=== PATIENT | female | born 1960 | race Caucasian/White ===

== ENCOUNTER 2019-11-13 13:10 | Emergency (ER) | payer MEDICAID ==
[~2019-11-13] VITALS: Ht 154.9 cm; Wt 140.9 kg
[~2019-11-13 13:10] MED LIST: ADDERALL5 MG PO; ALAVERT10 M1 PO; AMLOPIDINE; CATAPRES 0.1MG0.1 MG PO; CEPHALEXIN500 M1 PO; CLARITIN 1010 MG/TAB PO; DEPO-PROVER150 MG/M1 IM; FERROUS SU325 MG/TAB PO; FORTAMET500 MG PO; GLUCOPHAGE1000 MG PO; HCTZ 25MG25 MG PO; HYDROXYZINE50 MG PO; LASIX 20MG TABL20 MG PO; LEVAQUIN 5500 MG/TA1 PO; LEXAPRO 5MG5 MG PO; LEXAPRO20 MG PO; LIDODERM PATCH TP; LISINOPRIL20 MG PO; LORTAB 5/500 501 TAB PO; LORTAB 7.5/5001 TAB; METOPROLOL SUCC50 M1 PO; MIRAPEX 0.0.125 MG/T PO; MOBIC15 MG PO; MORPHINE PO; MOTRIN 800800 MG/TAB PO; NALTREXONE PO; NASONEX SPRAY17 GM; NORVASC 10MG10 MG PO; NORVASC 5MG5 MG/TAB PO; NYSTATIN POWDER15 GM TOP; PERCOCET 325 MG1 TA2 PO; PERCOCET 325 MG1 TAB PO; PERCOCET 500 MG1 TAB PO; PHENTERMINE; PREVACID 30MG30 M1 PO; PRINIVIL2.5 MG PO; PRINIVIL40 MG PO; RESTORIL 1515 MG/CAP PO; RESTORIL30 MG PO; SEPTRA DS 8001 TAB PO; TOPROL XL50 MG PO; VENTOLIN0.09 MG IH; VITAMIN D 1001000 IU PO; VYVANSE50 MG PO; XANAX .25M0.25 MG/TA PO; ZOCOR 20MG20 MG PO; ZOCOR5 MG PO
[2019-11-13 13:15] VITALS: TEMP 98.5
[2019-11-13] MEDS ORDERED: SINEQUAN 1010 MG/CAP PO (15:45)
[2019-11-13] MEDS ORDERED: CADUET 10 MG-101 TAB PO (15:48)
[2019-11-13] MEDS ORDERED: ADDERALL XR20 MG PO (15:50)
[2019-11-13] MEDS ORDERED: HYSINGLA60 PO (15:53)
[2019-11-13 16:00] VITALS: BP 178/88; PULSE 93
== END 2019-11-13 16:00 | disposition home or self-care (01) ==
LOC: COL.ER 13:10
DX: B37.2 Candidiasis of skin and nail (principal); E11.9 Type 2 diabetes mellitus without complications; E66.01 Morbid (severe) obesity due to excess calories; I10 Essential (primary) hypertension; E78.5 Hyperlipidemia, unspecified; Z90.89 Acquired absence of other organs; Z87.891 Personal history of nicotine dependence; Z79.84 Long term (current) use of oral hypoglycemic drugs

== ENCOUNTER → 2020-04-05 | Outpatient (CLI) | payer MEDICAID ==
[~2020-04-05] MED LIST changes: +ADDERALL XR20 MG PO; +CADUET 10 MG-101 TAB PO; +HYSINGLA60 PO; +SINEQUAN 1010 MG/CAP PO
== END ==
LOC: COL.RAD 14:46
DX: M47.816 Spondylosis without myelopathy or radiculopathy, lumbar region (principal)

== ENCOUNTER 2020-10-25 15:20 | Emergency (ER) | payer MEDICAID ==
[~2020-10-25] VITALS: Ht 154.9 cm; Wt 157.3 kg
[2020-10-25 16:17] LABS: BASO % 0.3 % (0.0-2.0); EOS # 0.1 (0.0-0.7); EOS % 1.3 % (0-4.0); GRAN # 6.5 (1.4-6.5); HEMATOCRIT 39.8 % (37.0-47.0); HEMOGLOBIN 12.3 g/dl (12.5-16.0); LYMPH # 1.9 (1.2-3.4); LYMPH % 20.6 % (20.0-51.0); MEAN CELL VOLUME 88 fl (80.0-100.0); MEAN CORPUSCULAR HEMOGLOBIN 27 pg (27.0-31.0); MEAN CORPUSCULAR HGB CONC 31 g/dl (33.0-37.0); MEAN PLATELET VOLUME 10.3 fl (7.4-10.4); MONO # 0.7 (0.1-0.6); PLATELET COUNT 226 K/mm3 (130-400); RED BLOOD COUNT 4.51 M/mm3 (4.10-5.30); REDCELL DISTRIBUTION WIDTH-CV 16.1 % (11.5-14.5)
[2020-10-25 16:25] LABS: ALANINE AMINOTRANSFERASE 30 U/L (4-34); ALKALINE PHOSPHATASE 114 U/L (50-136); ANION GAP 6 mmol/L (7-16); AST,SGOT 32 U/L (15-37); BILIRUBIN,TOTAL 0.2 mg/dL (0.0-1.0); BLOOD UREA NITROGEN 12 mg/dL (7-17); CARBON DIOXIDE 27 mmol/L (22-30); CHLORIDE 105 mmol/L (98-107); CREATININE, serum 0.45 (0.52-1.25); GLUCOSE 121 mg/dL (74-106); POTASSIUM 4.2 mmol/L (3.4-5.0); SODIUM 137 mmol/L (137-145); TOTAL PROTEIN 7.3 gm/dL (6.4-8.2)
[2020-10-25 16:36] LABS: TROPONIN-I < 0.012 ng/mL (0.000-0.035)
[2020-10-25 18:10] VITALS: BP 160/80; PULSE 65
== END 2020-10-25 18:15 | disposition home or self-care (01) ==
LOC: COL.ER 15:20
PROVIDERS: Physician Assistant
DX: I10 Essential (primary) hypertension (principal); E66.01 Morbid (severe) obesity due to excess calories; Z68.44 Body mass index [BMI] 60.0-69.9, adult; Z87.891 Personal history of nicotine dependence; Z88.0 Allergy status to penicillin; Z88.2 Allergy status to sulfonamides; Z79.899 Other long term (current) drug therapy
CPT/HCPCS: J2060

== ENCOUNTER 2020-12-14 21:09 | Inpatient (IN) | payer MEDICAID ==
[~2020-12-14] VITALS: Ht 154.9 cm; Wt 124.4 kg
[2020-12-14 23:59] LABS: BASO % 0.5 % (0.0-2.0); EOS % 0.3 % (0-4.0); GRAN % 51.2 % (42.2-75.2); HEMATOCRIT 41.4 % (37.0-47.0); HEMOGLOBIN 12.8 g/dl (12.5-16.0); LYMPH # 1.3 (1.2-3.4); LYMPH % 33.2 % (20.0-51.0); MEAN CELL VOLUME 87 fl (80.0-100.0); MEAN CORPUSCULAR HEMOGLOBIN 27 pg (27.0-31.0); MEAN CORPUSCULAR HGB CONC 31 g/dl (33.0-37.0); MEAN PLATELET VOLUME 10.4 fl (7.4-10.4); MONO # 0.6 (0.1-0.6); MONO % 14.3 % (1.7-9.3); PLATELET COUNT 176 K/mm3 (130-400); RED BLOOD COUNT 4.77 M/mm3 (4.10-5.30); REDCELL DISTRIBUTION WIDTH-CV 15.6 % (11.5-14.5)
[2020-12-15] VITALS (7 sets, daily range): BP systolic 127–183; BP diastolic 52–94; PULSE 68–89; TEMP 97.9–100
[2020-12-15 00:17] LABS: ALBUMIN 3.9 gm/dL (3.5-5.0); BILIRUBIN,TOTAL 0.2 mg/dL (0.0-1.0); CALCIUM 8.4 mg/dL (8.4-10.2); CREATININE, serum 0.66 (0.52-1.25); POTASSIUM 3.9 mmol/L (3.4-5.0); TOTAL PROTEIN 7.3 gm/dL (6.4-8.2)
[2020-12-15 00:42] LABS: TROPONIN-I 0.012 ng/mL (0.000-0.035)
[2020-12-15] MEDS ORDERED: COREG 3.123.125 MG/T PO (05:04)
--- NOTE | 2020-12-15 05:38 | NUR ---
Came up this morning with SOB. She is at 4L and sats between 94 to 96%. She complains of lower legs discomfort. She said that she have restless legs that she missed her night dose pill. She is concerned about the Insulin because she is not getting it at home. She is on Metformin. I explained to her that there is a parameter to get it and she understand it. Continue to monitor.
[2020-12-15 06:53] LABS: ARTERIAL BLD GAS O2 SATURATION 97.9 % (92-100); ARTERIAL BLD GAS TCO2 CT 28.1; ARTERIAL BLOOD GAS BASE EXCESS 1.2 (-2-2); ARTERIAL BLOOD GAS HCO3 26.7 meq/L (22-26); ARTERIAL BLOOD GAS PCO2 45.5 mmHg (35-45); ARTERIAL BLOOD GAS PO2 107.3 mmHg (80-100); ARTERIAL BLOOD GAS pH 7.39 (7.35-7.45)
--- NOTE | 2020-12-15 08:00 | NUR ---
Patient sitting up on the edge of bed, Lab here to draw blood and breakfast tray on the bedside table. VSS 3L NC O2. No reported SOB. Patient states that she "feels cold" thermastat increased, patient elevated temperature 99.4. Will continue to monitor. IV CDI, fluids infusing. Droplet/contact precautions in place. Denies pain and reports some discomfort BLE. No further needs. Call light within reach
[2020-12-15] MEDS ORDERED: XANAX 1MG1 MG PO (08:20)
[2020-12-15 08:44] LABS: GRAN # 2.4 (1.4-6.5); GRAN % 61.2 % (42.2-75.2); HEMATOCRIT 42.4 % (37.0-47.0); HEMOGLOBIN 13.1 g/dl (12.5-16.0); LYMPH % 26.7 % (20.0-51.0); MEAN CELL VOLUME 88 fl (80.0-100.0); MEAN CORPUSCULAR HEMOGLOBIN 27 pg (27.0-31.0); MEAN CORPUSCULAR HGB CONC 31 g/dl (33.0-37.0); MEAN PLATELET VOLUME 10.8 fl (7.4-10.4); MONO # 0.5 (0.1-0.6); MONO % 11.6 % (1.7-9.3); PLATELET COUNT 172 K/mm3 (130-400); RED BLOOD COUNT 4.84 M/mm3 (4.10-5.30); REDCELL DISTRIBUTION WIDTH-CV 15.9 % (11.5-14.5)
[2020-12-15 08:55] LABS: CALCIUM 8.6 mg/dL (8.4-10.2); CREATININE, serum 0.61 (0.52-1.25); MAGNESIUM 1.8 mg/dL (1.6-2.3); POTASSIUM 3.6 mmol/L (3.4-5.0)
--- NOTE | 2020-12-15 18:07 | NUR ---
Patient resting in bed. VSS 3L NC. Had an elevated temperature and returned to WNL No reported SOB. IV CDI. Denies pain and discomfort. Patient assisted with a bed bath. Patient has had several loose stools. Patient is hard to wake up when sleeping. Nurse had to shout at patient several times. Call light within reach
--- NOTE | 2020-12-16 02:50 | NUR ---
Josette asked Xanax last night. Ativan 0.5 mg oral ordered. She slept with cpap on. Two family members called last night her sister and her daughter. Her daughter asked a lot of questions that is Dr's concern. I told her that I can just get her number and have the Dr call back in the morning. She is concern about her Mom coughing blood. She didn't give it to me and she said she will just call in the morning.This morning when I did ny rounds I saw her sputum but I didn't see blood on it. I told her to call me if she feels like her sputum has blood on it. Continue to monitor. .
[2020-12-16 04:56] VITALS: BP 149/65; PULSE 83; TEMP 98.9
[2020-12-16 07:42] VITALS: BP 150/76; PULSE 72; TEMP 99.4
--- NOTE | 2020-12-16 08:00 | NUR ---
Scheduled medication given. Shift assessment preformed. Patient currently requiring 3L via nasal cannula. Patient C/O 12/14 aching pain located in her back. [place] ordered. Patient denies any N/V, but does C/O diarhea and SOB upon exertion. 1st round of Rememdisivir administered. Redness noted in her groin. Patient denies any further needs at this time. Will continue to monitor. Call light in reach.
--- NOTE | 2020-12-16 10:21 | NUR ---
The patient is COVID positive. PHI attempted to contact the patient's room and personal phone to discuss discharge plan. The patient did not answer. PHI contacted the patient's son, Anant Salvador (ph#[phone]), to complete intake. The patient lives alone in [place]. Anant states that the patient has a boyfriend, Rashad, that stays with her sometimes. He reports that the patient is independent with ADLs and has a cane. He states that she used to have a walker, but is unsure if she still does. The patient's primary care provider is Lyndsey Gong APRN at [facility] and she receives her medications from [facility]. Anant was unsure if the patient has a DPOA-HC and if the patient is legally . He reports that he will try and get in contact with the patient or his aunt to find this out and will let PHI know. He states that the patient has two children: himself and Judi Salvador. Judi also lives in [place]. Anant reports that Judi does not have a phone. PHI contacted [facility] to inquire if they have a DPOA-HC on file for the patient. The salon receptionist reports that they do not. PHI staffed with the patient's RN and asked that the patient's room phone be placed by the patient. The patient is currently on 2 liters of oxygen. SW to continue to monitor. *Discharge plan: TBD*
--- NOTE | 2020-12-16 11:41 | NUR ---
Dr. Garcia updated on patient's status.
[2020-12-16 12:18] VITALS: BP 143/75; PULSE 66; TEMP 98.6
--- NOTE | 2020-12-16 14:01 | NUR ---
PRN NORCO GIVEN FOR ACHING BACK PAIN RATED AN 8/10.
--- NOTE | 2020-12-16 15:53 | NUR ---
The patient's son, Anant, contacted SW back. Anant reports that he spoke to the patient. He reports that the patient is not and does not have a DPOA-HC. He states that his sister, Judi, does have a phone right now and her phone number is [phone].
[2020-12-16 16:00] VITALS: BP 147/75; PULSE 65; TEMP 98.5
--- NOTE | 2020-12-16 18:00 | NUR ---
Patient has had an ok day. Currenty requiring 3L of O2 via nasal cannula. PRN norco given for back pain rated an 8/10. Patient made aware that Morphine is available if norco is not relieving the pain. VSS. Patient denies any further pain, discomfort, or needs at this time. Will continue to monitor.Call light in reach.
[2020-12-16 18:18] VITALS: BP 182/92; PULSE 95; TEMP 98
[2020-12-16 20:19] VITALS: BP 135/70; PULSE 63; TEMP 99
[2020-12-17 01:15] VITALS: BP 156/85; PULSE 68; TEMP 99.3
[2020-12-17 04:08] VITALS: BP 157/61; PULSE 98; TEMP 99.1
--- NOTE | 2020-12-17 04:15 | NUR ---
Josette woke up this morning chilly. She called and said that she is very cold. She is afebrile. She wears cpap but she wanted to be switch in nasal cannula. Her saturation is 95at 3L. She also had an accident in her bed. She said she get caught with the blanket to go to the bathroom that's why she didn't make it to the bathroom. She complains of back pain and ask for pain meds. Gardner PRN given. She is requesting if she can get a copy of the procedure that was done already. RN explained that she needs to call the medical records for the results. She verbalized understanding. Continue to follow.
[2020-12-17 08:38] VITALS: BP 186/92; PULSE 94; TEMP 99.1
--- NOTE | 2020-12-17 09:01 | NUR ---
Scheduled medications given. Shift assessment preformed. Patient is currently requiring 2L via nasal cannula. Patient is experiencing urinary incontinence while coughing. Small amount of hemoptysis noted. Dr. Villarreal notified. PRN morphine given for aching back pain rated a 8/10. Patient c/o being "chilly". Patient temp 99.1. Patient denies any further needs at this time. Will continue to monitor. Call light in reach. Fall precautions in place.
[2020-12-17 11:17] VITALS: BP 144/65; PULSE 80; TEMP 98.9
--- NOTE | 2020-12-17 16:16 | NUR ---
The hospitalist notified PHI that the patient may be interested in home health. PHI contacted the patient to review d/c plan. The patient states that she lives in an RV in the park in [place]. She states that her RV has been taken over by mice and that she has four steps to get into her RV. She reports that she is unsure if she can get up those steps. She reports that her psychiatrist told her that we can get her into low income housing. PHI informed the patient that low income housing has a waitlist and that she has to apply for and it can take awhile. Getting the patient into low income housing by the time she discharges from the hospital is not achievable. PHI informed the patient of [employer] [facility]'s website and where she can go to apply online. The patient verbalized understanding. The patient reports that she is not able to go and stay with her son or daughter. The patient only has Medicaid for insurance. SW discussed going to a long-term care facility. The patient was not interested in LTC. PHI updated the hospitalist on the above and asked for PT/OT to be ordered. PHI made an APS report. Intake ID#[id number].
[2020-12-17 16:40] VITALS: BP 148/70; PULSE 66; TEMP 97.6
--- NOTE | 2020-12-17 18:00 | NUR ---
Patient has had an ok day. Currently requiring 3L of O2 via nasal cannula. VSS. PRN Morphine given for aching back pain rated a 7/10. Patient denies any further pain, discomfort, or further needs at this time. Will continue to monitor. Call light in reach.
[2020-12-17 19:59] VITALS: BP 135/65; PULSE 68; TEMP 99.1
[2020-12-18 00:05] VITALS: BP 107/50; PULSE 59; TEMP 98.2
[2020-12-18 05:07] VITALS: BP 147/70; PULSE 63; TEMP 98.1
--- NOTE | 2020-12-18 05:35 | NUR ---
Josette slept with bipap. She complains of pain in her lower back last night and rated 7/10. She got Coward PRN and she request Ativan so that she can sleep better. She was afebrile in the entire night. No complains noted after that.
[2020-12-18 07:15] LABS: HEMATOCRIT 37.9 % (37.0-47.0); HEMOGLOBIN 11.8 g/dl (12.5-16.0); MEAN CELL VOLUME 89 fl (80.0-100.0); MEAN CORPUSCULAR HEMOGLOBIN 28 pg (27.0-31.0); MEAN CORPUSCULAR HGB CONC 31 g/dl (33.0-37.0); MEAN PLATELET VOLUME 11.8 fl (7.4-10.4); PLATELET COUNT 149 K/mm3 (130-400); RED BLOOD COUNT 4.28 M/mm3 (4.10-5.30); REDCELL DISTRIBUTION WIDTH-CV 16.1 % (11.5-14.5)
[2020-12-18 07:31] LABS: CALCIUM 8.4 mg/dL (8.4-10.2); CREATININE, serum 0.55 (0.52-1.25); MAGNESIUM 1.9 mg/dL (1.6-2.3)
[2020-12-18 08:04] LABS: BAND 12 % (0-10); NEUTROPHILS 65 % (42.0-75.2)
[2020-12-18 08:05] LABS: ANISOCYTOSIS 1+; HYPOCHROMIA 3+; LYMPHOCYTE 10 % (20.0-51.0); MICROCYTOSIS 1+; PLATELET ESTIMATE NORMAL (NORMAL)
[2020-12-18 08:27] VITALS: BP 157/75; PULSE 63; TEMP 98.5
[2020-12-18 13:16] VITALS: BP 156/70; PULSE 78; TEMP 99.2
--- NOTE | 2020-12-18 16:27 | NUR ---
SW attempted to contact the patient's personal and room phone to review d/c plan. The patient did not answer.
[2020-12-18 17:10] VITALS: BP 157/84; PULSE 71; TEMP 99.8
[2020-12-18 19:53] VITALS: BP 147/70; PULSE 69; TEMP 98.9
[2020-12-19] VITALS (7 sets, daily range): BP systolic 110–150; BP diastolic 47–82; PULSE 53–72; TEMP 97.7–98.6
[2020-12-19 07:55] LABS: HEMATOCRIT 38.1 % (37.0-47.0); HEMOGLOBIN 11.8 g/dl (12.5-16.0); MEAN CELL VOLUME 88 fl (80.0-100.0); MEAN CORPUSCULAR HEMOGLOBIN 27 pg (27.0-31.0); MEAN CORPUSCULAR HGB CONC 31 g/dl (33.0-37.0); MEAN PLATELET VOLUME 11.5 fl (7.4-10.4); PLATELET COUNT 162 K/mm3 (130-400); RED BLOOD COUNT 4.34 M/mm3 (4.10-5.30); REDCELL DISTRIBUTION WIDTH-CV 15.9 % (11.5-14.5)
[2020-12-19 08:08] LABS: CALCIUM 8.5 mg/dL (8.4-10.2); CREATININE, serum 0.5 (0.52-1.25); POTASSIUM 4.3 mmol/L (3.4-5.0)
[2020-12-19 08:22] LABS: BAND 8 % (0-10); LYMPHOCYTE 20 % (20.0-51.0); NEUTROPHILS 63 % (42.0-75.2); PLATELET ESTIMATE NORMAL (NORMAL)
--- NOTE | 2020-12-19 15:51 | NUR ---
0730 PT RECEIVED RESTING IN BED. NO S/S OF DISTRESS NOTED. PT DENIES PAIN AT THIS TIME BUT HAVE PERIODICAL COUGHING. OXYGEN BEING ADMINISTERED AT 4L. PT [id number]. COMFORT MEASURES IN PLACE. CALL-LIGHT IN REACH. WILL CONTINUE TO MONITOR. 0900 MEDICATIONS ADMINISTERED ORDERED. PT HAS NO COMPLAINTS AT THIS TIME. PT ATE MOST OF HER MEAL. CALL-LIGHT IN REACH. COMFORT MEASURES IN PLACE. WILL CONTINUE TO MONITOR. VITAL SIGNS STABLE. 1200 PT ATE HER MEAL. PT STATES HER COUGH HAS GOTTEN BETTER THAN YESTERDAY. NO COMPLAINTS AT THIS TIME. WILL CONTINUE TO MONITOR.
--- NOTE | 2020-12-19 16:37 | NUR ---
PHI contacted the patient to review d/c plan. PT is recommending home with home health and she will provide a home exercise program to her. The patient may be able to d/c tomorrow. PHI contacted the patient to review d/c plan. The patient reports that she cannot go back to . PHI discussed the options of paying to stay at a hotel or staying with family. The patient states that she cannot stay with her family and cannot afford a hotel. The patient requested that SW help her apply for public housing. PHI informed her that PHI could give her the application, but cannot fill out the form for her. The patient was upset with PHI. The patient stated okay. PHI provided the Public Housing Application to the patient's RN.
--- NOTE | 2020-12-19 21:23 | NUR ---
ALERT AND OX4. CONT TO FEEL SOA- O2 AT 4L 89%, 5L SUSTAINING AT 90-91%. ASSESSMENT COMPLETE. VSS. PLAN OF CARE DISCUSSED. ICE WATER REFILLED AND FAWAD SNACK PROVIDED. PM MEDS GIVEN ALONG W PRN NORCO AND ATIVAN. NEEDS MET.
[2020-12-20 03:28] VITALS: BP 146/54; PULSE 58; TEMP 97.5
--- NOTE | 2020-12-20 04:59 | NUR ---
RESTED THROUGH THE NIGHT WITHOUT INCIDENT. DID HAVE TO BUMP O2 UP TO 5 LITERS OVERNIGHT TO KEEP ABOVE 90%. ANTIBOTIC HUNG THIS AM AND PT UP TO BR. NEEDS MET.
[2020-12-20 08:00] VITALS: BP 177/91; PULSE 72; TEMP 98.5
[2020-12-20 12:25] VITALS: BP 154/58; PULSE 67; TEMP 97.9
[2020-12-20 18:03] VITALS: BP 166/78; PULSE 63; TEMP 97.9
--- NOTE | 2020-12-20 18:25 | NUR ---
0700 PT RECEIVED RESTING IN BED. NO S/S OF DISTRESS NOTED. PT NOT COMPLAINTS AT THIS TIME WILL CONTINUE TO MONITOR. CALL-LIGHT IN REACH. BED IN LOW POSITION. COMFORT MEASURES IN PLACE. 0900 MEDICATIONS ADMINISTERED ORDERED. PT VOICES NO CONCRNS AT THIS TIME. WILL CONTINUE TO MONITOR. PT ATE HER MEAL. 1200 PT ATE HER LUNCH. NO CONCERNS AT THIS TIME. PT DENIES HAVING PAIN. WILL CONTINUE TO MONITOR. 1800 PT RESTING IN BED. MEDICATIONS ADMINISTERED ORDERED. PT COMPLAINED OF PAIN. PAIN MEDICATION ADMINISTERED ORDERED. PT CURRENTLY EATING HER SUPPER.
[2020-12-20 19:36] VITALS: BP 147/65; PULSE 62; TEMP 98.6
--- NOTE | 2020-12-20 22:05 | NUR ---
pt has been well. Pain rated 3/10. Currently on 4 L. Will continue to monitor.
[2020-12-20 23:11] VITALS: BP 151/60; PULSE 58; TEMP 98.5
[2020-12-21 03:23] VITALS: BP 167/83; PULSE 56; TEMP 98.5
[2020-12-21 06:58] LABS: HEMOGLOBIN 12.5 g/dl (12.5-16.0); MEAN CELL VOLUME 87 fl (80.0-100.0); MEAN CORPUSCULAR HEMOGLOBIN 27 pg (27.0-31.0); MEAN CORPUSCULAR HGB CONC 31 g/dl (33.0-37.0); MEAN PLATELET VOLUME 11.4 fl (7.4-10.4); PLATELET COUNT 173 K/mm3 (130-400); RED BLOOD COUNT 4.62 M/mm3 (4.10-5.30); REDCELL DISTRIBUTION WIDTH-CV 15.8 % (11.5-14.5)
[2020-12-21 07:10] LABS: CALCIUM 8.7 mg/dL (8.4-10.2); CREATININE, serum 0.54 (0.52-1.25); POTASSIUM 4.4 mmol/L (3.4-5.0)
[2020-12-21 07:37] VITALS: BP 170/84; PULSE 62; TEMP 98
[2020-12-21 12:00] VITALS: BP 162/69; PULSE 59; TEMP 98
[2020-12-21 16:43] VITALS: BP 156/83; PULSE 65
--- NOTE | 2020-12-21 18:00 | NUR ---
Patient has had an ok day. Dr. Loving updated on patient's status. PRN Morphine given for aching back pain rated a 8/10. New IV site started in Left AC. Patient still requiring 4L of O2 via nasal cannula. Patient denies any further pain, discomfort, or needs at this time. Will continue to monitor. Call light in reach.
[2020-12-21 20:19] VITALS: BP 153/68; PULSE 59; TEMP 98.6
--- NOTE | 2020-12-21 21:51 | NUR ---
ALERT AND OX4. SOA WITH AMBULATION. PAIN IN LOWER BACK AND CHEST RATING 8/10. NORCO AND ATIVAN GIVEN PER PT REQ. IV TO LEFT AC FLUSHED WELL, NO REDNESS. BS TX OF 381. POC DISCUSSED. CALL LIGHT WI REACH . NEEDS MET.
[2020-12-21 23:55] VITALS: BP 148/52; PULSE 57; TEMP 98
[2020-12-22 04:11] VITALS: BP 162/83; PULSE 90; TEMP 97.9
--- NOTE | 2020-12-22 04:48 | NUR ---
RESTED THROUGH THE NIGHT WO INCIDENT. PAIN PILL NEEDED THIS AM. NEEDS MET.
[2020-12-22 08:23] VITALS: BP 161/77; PULSE 47; TEMP 98
[2020-12-22 12:41] VITALS: BP 154/79; PULSE 58; TEMP 98.2
[2020-12-22 16:54] VITALS: BP 164/77; PULSE 69; TEMP 98.1
--- NOTE | 2020-12-22 18:20 | NUR ---
0700 PT RECEIVED RESTING IN BED. NO S/S OF DISTRESS NOTED. PT VOICES NO CONCERNS AT THIS TIME. OXYGEN IN PLACE AT 4L. AAOX3. COMFORT MEASURES IN PLACE. WILL CONTINUE TO MONITOR. 0900 MEDICATIONS ADMINISTERED ORDERED. PT ATE HER MEAL. PT VOICES NO CONCERNS. COMFORT MEASURES IN PLACE WILL CONTIINUE TO MONITOR. 1200 PT ATE HER LUNCH. MEDICATIONS ADMINISTERED ORDERED. PT HAS NO COMPLAINTS AT THIS TIME. WILL CONTINUE TO MONITOR. 1700 PT COMPLAINED OF PAIN AND WAS MEDICATED. MEDICATION EFFECTIVE. PT ATE HER MEAL. COMFORT MEASURES IN PLACE. WILL CONTINUE TO MONITOR.
[2020-12-22 19:26] VITALS: BP 168/77; PULSE 63; TEMP 98.3
[2020-12-22 23:35] VITALS: BP 158/84; PULSE 56; TEMP 98
[2020-12-23 04:16] VITALS: BP 166/75; PULSE 55; TEMP 98
--- NOTE | 2020-12-23 04:18 | NUR ---
Patient asked for pain meds last night for back pain. Harlan was given and Ativan was given as well. She slept with bipap and wears it for only about 3hours. She woke up and asked snacks and she said that she will use the nasal cannula. She slept on and off for the night. No SOB noted. She is expecting that she can be discharge today. Continue to monitor.
[2020-12-23 07:30] LABS: CALCIUM 8.9 mg/dL (8.4-10.2); CREATININE, serum 0.44 (0.52-1.25); POTASSIUM 4.5 mmol/L (3.4-5.0)
[2020-12-23 07:49] VITALS: BP 166/74; PULSE 55; TEMP 98.1
[2020-12-23 11:26] VITALS: BP 148/66; PULSE 53; TEMP 98.2
--- NOTE | 2020-12-23 16:03 | NUR ---
PHI contacted Susanne, APS worker, to follow up on the report. Susanne reports that the report was assigned to the APS worker, Monik (ph#[phone]). PHI contacted Monik and provided her with an update and inquired about possible assistance with a hotel. Monik reports that she plans on coming up to the hospital to visit with the patient tomorrow afternoon. She states that she needs to follow up with the patient and check into her finances, but could then maybe help with hotel costs. PHI updated the hospitalist.
[2020-12-23 16:30] VITALS: BP 164/78; PULSE 63; TEMP 98.2
--- NOTE | 2020-12-23 17:00 | NUR ---
Pt resting in the room, has C/O pain during the day, medications were given for relief with good results. Currently on 4 LPM NC. No other complaints issues noted. Pt needs met throughout the day.
[2020-12-23 20:09] VITALS: BP 157/63; PULSE 59; TEMP 98
--- NOTE | 2020-12-23 22:05 | NUR ---
Shift assessment completed. Patient alert and oriented. Patient reports pain to her back 02/14. PRN [place] and Morphine given per patient request. Patient currently on oxygen 4L via NC. Breathing even and unlabored. No acute respiratory distress noted. PRN Ativan given per patient request for anxiety. All scheduled meds given per AUG. Call light within reach. Will continue to monitor.
[2020-12-23 23:41] VITALS: BP 144/67; PULSE 52; TEMP 98
[2020-12-24 03:53] VITALS: BP 142/54; PULSE 55; TEMP 98.1
[2020-12-24 08:10] VITALS: BP 147/74; PULSE 58; TEMP 98.1
--- NOTE | 2020-12-24 09:04 | NUR ---
Pt awake and alert upon entry, some C/O pain at this time. Shift assessments complete, left Pt call light in reach, bed in lowest position.
[2020-12-24 11:52] VITALS: BP 157/73; PULSE 53; TEMP 98.1
--- NOTE | 2020-12-24 16:06 | NUR ---
PHI contacted Monik, APS worker, to follow up. Monik reports that she just got up to the hospital and obtained the patient's room and cell phone number. She states she will be contacting the patient now to discuss the patient's situation and will contact PHI afterwards. Monik then contacted PHI back. Monik reports that she would be able to assist the patient with getting into a hotel. PHI informed Monik how the patient is going to be discharged tomorrow. Monik verbalized understanding. Monik states that she contacted the health department for assistance to find a hotel that can take COVID positive patients. She reports that the person, González, that handles this is already out for the day, but will be back tomorrow morning at 0900. She states that she plans on contacting him at 0900 to hopefully find a hotel in the [facility] area for the patient. She reports that she will contact PHI afterwards. PHI then contacted and updated the patient on the above and how d/c will be tomorrow. The patient verbalized understanding. She was agreeable to the plan.
[2020-12-24 17:17] VITALS: BP 159/74; PULSE 60; TEMP 98.4
[2020-12-24 20:33] VITALS: BP 154/69; PULSE 58; TEMP 98.2
[2020-12-25 00:35] VITALS: BP 156/73; PULSE 68; TEMP 98.1
[2020-12-25 03:53] VITALS: BP 160/78; PULSE 57; TEMP 98.2
--- NOTE | 2020-12-25 05:30 | NUR ---
Awake, alert, oriented x 4, telemetry in use, currently tolerating room air, sitting up in chair, no s/s of hypo/hyper glycemia noted, VS stable, updated on plan of care, plan to discharge today- verbalized understanding.
[2020-12-25 08:00] VITALS: BP 159/77; PULSE 64; TEMP 98.1
[2020-12-25] MEDS ORDERED: PROAIR HFA0.09 MG/AC IH (11:33)
[2020-12-25] MEDS ORDERED: COREG 6.256.25 MG/TA PO (11:34)
[2020-12-25] MEDS ORDERED: LASIX 40MG TABL40 MG PO (11:35)
[2020-12-25] MEDS ORDERED: OXYGEN (11:38)
[2020-12-25 12:10] VITALS: BP 148/74; PULSE 55; TEMP 98.9
--- NOTE | 2020-12-25 16:12 | NUR ---
PHI collaborated with phys assistant, Marilee. The patient tested positive for COVID on 12/14 and is able to come out of isolation precautions as of today. PHI notified the hospitalist and Monik with APS. Monik requested a note from the doctor that she is out of isolation. PHI obtained the note from the hospitalist. PHI emailed the note to Nelson. Monik reports that she was able to book a room for the patient at [facility] in [place]. Home health is being recommended. PHI contacted Radha at [facility]. Ramon reports that they do take the patient's insurance and is able to accept the patient for care home. PHI updated the patient. The patient is agreement to the plan. The corrections unit supervisor then notified PHI that the patient is wanting to talk to PHI. PHI contacted the patient. The patient reports she has heard that the [facility] has bed bugs and she does not want to go there. Lyndsey, at [facility], then contacted PHI. Lyndsey reports that the patient updated her about the bed bug situation. She reports that they would not be able to see the patient at the hot with bed bugs or at the patient's , due to it being a risk to their employees. PHI updated Monik with APS. Monik was able to book the patient a hotel at the [address] in [place]. PHI updated the patient. The patient was in agreement to going to the [place] [address]. The patient will need transportation to the [place] [address]. PHI informed the patient that we would provide a taxi voucher to the hotel. The patient verbalized understanding. PHI updated the patient's RN and provided her with the taxi voucher and the phone number to [employer]. PHI updated Cydni at [facility]. Ramon repors that they would be able to go out to the [place] [address] to see the patient. The patient is to discharge today, 12/25, to the [address] in [place] with home health services for care home from [facility]. Transportation to be provided by [employer]. No additional needs at this time.
--- NOTE | 2020-12-25 18:55 | NUR ---
1845 PT DC'S AT THIS TIME. NO S/S OF DISTRESS NOTICED. DISCHARGE INSTRUCTIONS REVIEWED WITH PT AND ALL QUESTIONS WERE ANSWERED. PT IV ACCESS REMOVED. PT TOOK ALL HER BELONGINGS. CAB SERVICE TO PT HOTEL PICKED HER UP AND VOUCHER GIVEN TO PT.
--- NOTE | 2021-01-02 15:44 | NUR ---
Ramon, at [facility], contacted this SW. Ramon reports that the patient is moving back to her RV tomorrow. She states that they will have to discharge her from their services, due to the patient living in unsafe living conditions.
== END 2020-12-25 18:45 | disposition home health service (06) | DRG 177 ==
LOC: COL.ER 21:09 → MEDICAL 12-15 03:35
PROVIDERS: Internal Medicine; Personal Emergency Response Attendant; Physician Assistant; Student in an Organized Health Care Education/Training Program; ADMIT Internal Medicine
PROC: XW033E5 Introduction of Remdesivir Anti-infective into Peripheral Vein, Percutaneous Approach, New Technology Group 5 (ICD-10-PCS; principal; 2020-12-16)
DX: U07.1 COVID-19 (principal); J12.82 Pneumonia due to coronavirus disease 2019; J96.01 Acute respiratory failure with hypoxia; R65.10 Systemic inflammatory response syndrome (SIRS) of non-infectious origin without acute organ dysfunction; R04.2 Hemoptysis; E87.1 Hypo-osmolality and hyponatremia; Z68.44 Body mass index [BMI] 60.0-69.9, adult; J45.909 Unspecified asthma, uncomplicated; I10 Essential (primary) hypertension; E11.9 Type 2 diabetes mellitus without complications; G47.33 Obstructive sleep apnea (adult) (pediatric); F32.9 Major depressive disorder, single episode, unspecified; E66.01 Morbid (severe) obesity due to excess calories; E78.5 Hyperlipidemia, unspecified; G47.00 Insomnia, unspecified; G89.29 Other chronic pain; M54.9 Dorsalgia, unspecified; G25.81 Restless legs syndrome; R91.8 Other nonspecific abnormal finding of lung field; Z79.891 Long term (current) use of opiate analgesic; Z79.4 Long term (current) use of insulin; Z87.891 Personal history of nicotine dependence; Z88.0 Allergy status to penicillin; Z88.1 Allergy status to other antibiotic agents; Z88.2 Allergy status to sulfonamides
CPT/HCPCS: OP; 99223-AI; 99231-AI; 99232-AI; 99233-AI; 99239; A9284; J1650; J1815; J1885; J1956; J2270; J2405; J7030; J7050; J8540

== ENCOUNTER → 2021-01-27 | Outpatient (CLI) | payer MEDICAID ==
[~2021-01-27] MED LIST changes: +COREG 3.123.125 MG/T PO; +COREG 6.256.25 MG/TA PO; +LASIX 40MG TABL40 MG PO; +OXYGEN; +PROAIR HFA0.09 MG/AC IH; +XANAX 1MG1 MG PO
== END ==
LOC: COL.RAD 11:30
DX: R06.02 Shortness of breath (principal)

== ENCOUNTER → 2021-08-04 | Outpatient (CLI) | payer MEDICAID | LOC: COL.RAD 11:16 | DX: R91.8 Other nonspecific abnormal finding of lung field (principal) ==

== ENCOUNTER 2023-11-27 21:10 | Emergency (ER) | payer MEDICAID ==
[~2023-11-27] VITALS: Ht 154.9 cm; Wt 145.5 kg
[~2023-11-27 21:10] MED LIST changes: +ALDACTONE 25MG25 M1 PO; +CATAPRES0.2 MG PO; +COREG12.5 MG PO; +DITROPAN XL 5MG5 M1 PO; +GLUCOTROL10 MG PO; +LEVAQUIN 750MG750 M1 PO
[2023-11-27 21:30] VITALS: TEMP 98.2
[2023-11-28] MEDS ORDERED: Morphine 4 MG/ML VIAL IV ONE (00:30)
[2023-11-28 00:40] LABS: BASO # 0.1 K/mm3 (0.0-0.2); BASO % 0.4 % (0.0-2.0); EOS # 0.2 K/mm3 (0.0-0.7); EOS % 1.5 % (0.0-4.0); GRAN % 67.8 % (42.2-75.2); HEMATOCRIT 41.3 % (37.0-47.0); HEMOGLOBIN 12.8 g/dl (12.5-16.0); LYMPH # 2.7 K/mm3 (1.2-3.4); LYMPH % 22.8 % (20.0-51.0); MEAN CELL VOLUME 88 fl (80.0-100.0); MEAN CORPUSCULAR HEMOGLOBIN 27 pg (27-31); MEAN CORPUSCULAR HGB CONC 31 g/dl (33.0-37.0); MEAN PLATELET VOLUME 10.6 fl (7.4-10.4); MONO # 0.9 K/mm3 (0.1-0.6); MONO % 7.2 % (1.7-9.3); PLATELET COUNT 238 K/mm3 (130-400); REDCELL DISTRIBUTION WIDTH-CV 16.4 % (11.5-14.5)
[2023-11-28 00:59] LABS: CALCIUM 9.6 mg/dL (8.4-10.2); CREATININE, serum 0.79 mg/dL (0.57-1.11); POTASSIUM 4.2 mEq/L (3.5-4.5)
[2023-11-28] MEDS ORDERED: droPERidol 2.5 MG/ML 2 ML VIAL IV ONE (01:45)
[2023-11-28] MEDS ORDERED: ROBAXIN 50500 MG/TAB PO (04:06)
[2023-11-28 04:10] VITALS: BP 170/81; PULSE 68
== END 2023-11-28 04:10 | disposition home or self-care (01) ==
LOC: COL.ER 21:10
PROVIDERS: Emergency Medicine
DX: M50.30 Other cervical disc degeneration, unspecified cervical region (principal); E66.9 Obesity, unspecified; Z91.040 Latex allergy status
CPT/HCPCS: J1790; J2270